=== PATIENT | female | born 1995 | race Asian ===

== ENCOUNTER 2025-01-02 20:48 | Emergency (ER) | payer SELFPAY ==
[~2025-01-02] VITALS: Ht 160 cm; Wt 53.1 kg
[2025-01-02 20:50] VITALS: BP 113/77; TEMP 98.3; O2SAT 98
== END 2025-01-02 21:18 | disposition home or self-care (01) ==
LOC: ER 20:52
DX: U07.1 COVID-19 (principal); B34.9 Viral infection, unspecified; R05.9 Cough, unspecified; R09.81 Nasal congestion; J45.909 Unspecified asthma, uncomplicated; Z60.2 Problems related to living alone

== ENCOUNTER 2025-02-06 19:30 | Emergency (ER) | payer BC, OTHER ==
[~2025-02-06] VITALS: Ht 160 cm; Wt 49.9 kg
[2025-02-06 19:31] VITALS: BP 122/74; TEMP 98.4; O2SAT 99
[2025-02-06] MEDS ORDERED: IBUP-1490 PO (19:46)
== END 2025-02-06 20:38 | disposition home or self-care (01) ==
LOC: ER 19:33
DX: B34.9 Viral infection, unspecified (principal); J45.909 Unspecified asthma, uncomplicated; Z60.2 Problems related to living alone; Z20.822 Contact with and (suspected) exposure to COVID-19

== ENCOUNTER 2025-03-29 12:07 | Emergency (ER) | payer BC, OTHER ==
[~2025-03-29] VITALS: Ht 160 cm; Wt 53.1 kg
[~2025-03-29 12:07] MED LIST: IBUP-1490 PO
[2025-03-29 12:10] VITALS: BP 122/86; TEMP 98.1; O2SAT 97
== END 2025-03-29 13:01 | disposition home or self-care (01) ==
LOC: ER 12:17
DX: M67.431 Ganglion, right wrist (principal); J45.909 Unspecified asthma, uncomplicated; Z60.2 Problems related to living alone